=== PATIENT | male | born 1995 | race Caucasian/White ===

== ENCOUNTER 2017-03-23 21:31 | Emergency (ER) | payer SELFPAY ==
[2017-03-23] MEDS ORDERED: Tetanus/Diphtheria Toxoids 0.5 ml Syringe IM ONE (22:22)
--- NOTE | 2017-03-23 22:27 | C.PDOC ---
History Of Present Illness 21 y/o male presents to ED with complaint of laceration to left forearm, sustained about 2 weeks ago. Patient states he was doing wound care on his own, cleaning with water and soap, and applying unknown antibiotic cream. Patient states he was told by family to come in today for evaluation. Patient states that the wound has been improving. Denies fever, chills, or other associated symptoms. Patient is not up to date with tetanus vaccination. Time Seen by Provider: 03/23/17 22:07 Chief Complaint (Nursing): Abnormal Skin Integrity History Per: Patient History/Exam Limitations: no limitations Onset/Duration Of Symptoms: Days Current Symptoms Are (Timing): Better Location Of Injury: Left: Forearm, Posterior: Forearm Quality Of Symptoms: denies: Painful, Draining Recent travel outside of the [place]: No Past Medical History Reviewed: Historical Data, Nursing Documentation, Vital Signs Vital Signs: Last Vital Signs Temp 98.3 F 03/23/17 22:51 Pulse 76 03/23/17 22:51 Resp 18 03/23/17 22:51 BP 125/71 03/23/17 22:51 Pulse Ox 98 03/23/17 23:07 - Medical History PMH: No Chronic Diseases Family History: States: Unknown Family Hx - Social History Hx Alcohol Use: No Hx Substance Use: No - Immunization History Hx Tetanus Toxoid Vaccination: No Hx Influenza Vaccination: No Hx Pneumococcal Vaccination: No Review Of Systems Except As Marked, All Systems Reviewed And Found Negative. Constitutional: Negative for: Fever, Chills Skin: Positive for: Other (healing laceration left posterior forearm). Negative for: Rash Neurological: Negative for: Weakness, Numbness Physical Exam - Physical Exam Appears: Well, Non-toxic, No Acute Distress Skin: Warm, Dry Head: Atraumatic, Normacephalic Extremity: Normal ROM, Capillary Refill, No Deformity, No Swelling, Other (4.0 cm, open laceration to posterior left forearm, healing well. No signs of erythema, warmth, drainage, exudates, or fluctuance. ) Extremity: Bilateral: Normal Color And Temperature Pulses: Left Radial: Normal, Right Radial: Normal Neurological/Psych: Oriented x3, Normal Motor, Normal Sensation ED Course And Treatment O2 Sat by Pulse Oximetry: 98 (RA) Pulse Ox Interpretation: Normal Progress Note: Tetanus vaccination given. Wound cleansed and bacitracin applied. Patient advised to take prescribed medications as directed. Disposition Counseled Patient/Family Regarding: Diagnosis - Disposition Disposition: HOME/ ROUTINE Disposition Time: 22:27 Condition: STABLE Additional Instructions: Please keep wound clean Apply bacitracin ointment Return to ER if worse Prescriptions: Cephalexin [cephalexin] 500 mg PO QID #28 cap Instructions: Acute Wound Care (ED) - Clinical Impression Clinical Impression: Encounter for wound care - PA / [employer] / Resident Statement MD/DO has reviewed & agrees with the documentation as recorded. - Scribe Statement The provider has reviewed the documentation as recorded by the Scribe All medical record entries made by the Ayla were at my direction and personally dictated by me. I have reviewed the chart and agree that the record accurately reflects my personal performance of the history, physical exam, medical decision making, and the department course for this patient. I have also personally directed, reviewed, and agree with the discharge instructions and disposition.
[2017-03-23] MEDS ORDERED: Bacitracin 500 Units/gm Oint Foilpak UD ONE (22:35)
[2017-03-23 22:52] VITALS: BP 125/71; PULSE 76; RESP 18; TEMP 98.3
[2017-03-23 23:04] VITALS: O2SAT 98
== END 2017-03-23 22:52 | disposition home or self-care (01) ==
LOC: C.ER 21:31
DX: Z51.89 Encounter for other specified aftercare (principal); Z23 Encounter for immunization